=== PATIENT | female | born 1940 | race Caucasian/White ===

== ENCOUNTER 2018-09-30 18:06 | Emergency (ER) | payer OTHER ==
[~2018-09-30] VITALS: Ht 149.9 cm; Wt 58.1 kg
[2018-10-01] MEDS ORDERED: ACIDOPHILUS1 EAC2 PO (08:01)
[2018-10-01] MEDS ORDERED: OMEPRAZOLE20 M1 PO (08:01)
[2018-10-01] MEDS ORDERED: METRONIDAZOLE500 MG PO (08:01)
[2018-10-01] MEDS ORDERED: CIPRO500 MG PO (08:01)
== END 2018-10-01 13:41 | disposition home or self-care (01) ==
LOC: ER 18:06
DX: K57.32 Diverticulitis of large intestine without perforation or abscess without bleeding (principal); R10.32 Left lower quadrant pain

== ENCOUNTER 2020-08-04 16:55 | Emergency (ER) | payer OTHER ==
[~2020-08-04] VITALS: Ht 149.9 cm; Wt 54.0 kg
[~2020-08-04 16:55] MED LIST: ACIDOPHILUS1 EAC2 PO; CIPRO500 MG PO; METRONIDAZOLE500 MG PO; OMEPRAZOLE20 M1 PO
[2020-08-04] MEDS ORDERED: ENALAPRIL MALEA10 MG (17:21)
[2020-08-04] MEDS ORDERED: ATORVASTATIN CA20 MG (17:22)
[2020-08-04] MEDS ORDERED: HYDROCHLOROTH12.5 MG (17:22)
[2020-08-04] MEDS ORDERED: GABAPENTIN300 M2 (17:22)
[2020-08-04] MEDS ORDERED: CLONAZEPAM0.5 MG (17:23)
== END 2020-08-04 22:47 | disposition home or self-care (01) ==
LOC: ER 16:55 → CPU-OBS 17:08 → ER 17:08
DX: R07.89 Other chest pain (principal); N39.0 Urinary tract infection, site not specified; Z03.818 Encounter for observation for suspected exposure to other biological agents ruled out